=== PATIENT | female | born 1965 | race Caucasian/White ===

== ENCOUNTER 2022-12-28 07:10 | Day surgery (SDC) | payer OTHER ==
[~2022-12-28] VITALS: Ht 157.5 cm; Wt 82.6 kg
[2022-12-28] MEDS ORDERED: LIDOCAINE 1% 500 MG/50 ML VIAL ONE (08:06)
[2022-12-28] MEDS ORDERED: BUPIVACAINE-MPF/EPI 0.25% 30 ML VIAL INJ ONE (08:06)
[2022-12-28] MEDS ORDERED: DEXAMETHASONE 4 MG/ML VIAL ONE (08:30)
[2022-12-28] MEDS ORDERED: METOCLOPRAMIDE 10 MG/2 ML INJ VIAL ONE (08:30)
[2022-12-28] MEDS ORDERED: SEVOFLURANE 250 ML BTL INH ONE (08:30)
[2022-12-28] MEDS ORDERED: fentaNYL citrate 0.05 MG/ML VIAL ONE ×2 (08:31→09:20)
[2022-12-28] MEDS ORDERED: MIDAZOLAM 2 MG/2 ML VIAL ONE (08:31)
[2022-12-28] MEDS ORDERED: ePHEDrine 50 MG/ML VIAL ONE (09:22)
[2022-12-28] MEDS ORDERED: SUCCINYLCHOLINE CHLORIDE 200 MG/10 ML VIAL IVP ONE (09:23)
[2022-12-28] MEDS ORDERED: PROPOFOL 200 MG/20 ML VIAL IV ONE (09:23)
[2022-12-28] MEDS ORDERED: HYDROcodone/APAP 10/325 MG 1 TAB TAB PO PRN (10:50)
[2022-12-28] MEDS ORDERED: HYDROcodone/APAP 5/325 MG 1 TAB TAB ONE (10:54)
[2022-12-28] MEDS ORDERED: HYDROcodone/APAP 5/325 MG 1 TAB TAB PO PRN (11:10)
== END 2022-12-28 11:45 | disposition home or self-care (01) ==
LOC: MDS 07:10 → MMU 07:11 → MDS 11:45
PROVIDERS: ATTEND Surgery
DX: K64.8 Other hemorrhoids (principal); K64.9 Unspecified hemorrhoids; K21.9 Gastro-esophageal reflux disease without esophagitis
CPT/HCPCS: 46260; 71045; 93005; J0330; J1100; J2001; J2250; J2704; J2765; J3010; J3490; J7120; 88304